=== PATIENT | male | born 1990 | race African-American/Black ===

== ENCOUNTER 2019-08-08 10:17 | Emergency (ER) | payer SELFPAY ==
[~2019-08-08] VITALS: Ht 175.3 cm; Wt 59.0 kg
[2019-08-08 10:20] VITALS: BP 131/78
[2019-08-08] MEDS ORDERED: VENTOLIN HFA18 GM INH (10:48)
[2019-08-08] MEDS ORDERED: METH4TAB2 PO (10:48)
--- NOTE | 2019-08-08 10:49 | PHYS DOC ---
Past Medical History Past Medical History: No Pertinent History Past Surgical History: No Surgical History Smoking Status: Current Every Day Smoker Alcohol Use: None Drug Use: None Adult General Chief Complaint Chief Complaint: COUGH HPI HPI 29-year-old otherwise healthy male presents with cough and congestion but no fever. Patient states he feels like he has bronchitis. He states the cough is nonproductive. He denies any hemoptysis. Patient denies any chest pain. The patient does continue to smoke[] Review of Systems Review of Systems Constitutional: Denies fever or chills [] Eyes: Denies change in visual acuity, redness, or eye pain [] HENT: Denies nasal congestion or sore throat [] Respiratory: Per history of present illness[] Cardiovascular: No additional information not addressed in HPI [] GI: Denies abdominal pain, nausea, vomiting, bloody stools or diarrhea [] : Denies dysuria or hematuria [] Musculoskeletal: Denies back pain or joint pain [] Integument: Denies rash or skin lesions [] Neurologic: Denies headache, focal weakness or sensory changes [] Endocrine: Denies polyuria or polydipsia [] All other systems were reviewed and found to be within normal limits, except as documented in this note. Allergies Allergies Allergies Coded Allergies Type Severity Reaction Last Updated Verified No Known Drug Allergies 11/29/13 No Physical Exam Physical Exam Constitutional: Well developed, well nourished, no acute distress, non-toxic a ppearance. [] HENT: Normocephalic, atraumatic, bilateral external ears normal, oropharynx moist, no oral exudates, nose normal. [] Eyes: PERRLA, EOMI, conjunctiva normal, no discharge. [] Neck: Normal range of motion, no tenderness, supple, no stridor. [] Cardiovascular:Heart rate regular rhythm, no murmur [] Lungs & Thorax: Coarse rhonchi no obvious wheezing[] Abdomen: Bowel sounds normal, soft, no tenderness, no masses, no pulsatile masses. [] Skin: Warm, dry, no erythema, no rash. [] Back: No tenderness, no CVA tenderness. [] Extremities: No tenderness, no cyanosis, no clubbing, ROM intact, no edema. [] Neurologic: Alert and oriented X 3, normal motor function, normal sensory function, no focal deficits noted. [] Psychologic: Affect normal, judgement normal, mood normal. [] Current Patient Data Vital Signs Vital Signs Date Time Temp Pulse Resp B/P (MAP) Pulse Ox O2 Delivery O2 Flow Rate FiO2 08/08/19 10:20 97.8 89 16 131/78 (95) 97 Room Air 97.8 EKG EKG [] Radiology/Procedures Radiology/Procedures [] Course & Med Decision Making Course & Med Decision Making Pertinent Labs and Imaging studies reviewed. (See chart for details) [] Dragon Disclaimer Dragon Disclaimer This electronic medical record was generated, in whole or in part, using a voice recognition dictation system. Departure Departure Impression: Primary Impression: Bronchitis Disposition: HOME, SELF-CARE Condition: STABLE Referrals: NO PCP (PCP) Scripts Methylprednisolone (MEDROL) 4 Mg Tab.ds.pk 1 PKG PO UD for arthritis, #1 PKG Prov: ALEJANDRA WASHINGTON DO 08/08/19 Albuterol Sulfate (VENTOLIN HFA INHALER) 18 Gm Hfa.aer.ad 2 PUFF INH Q4HRS for FOR ASTHMA, #1 INHALER 0 Refills With a spacer Prov: ALEJANDRA WASHINGTON DO 08/08/19 ALEJANDRA WASHINGTON DO Aug 08, 2019 10:49
== END 2019-08-08 10:53 | disposition home or self-care (01) ==
LOC: ER 10:17
DX: J40 Bronchitis, not specified as acute or chronic (principal); R05 Cough; R09.81 Nasal congestion; F17.200 Nicotine dependence, unspecified, uncomplicated
CPT/HCPCS: 99283